=== PATIENT | female | born 1945 | race Caucasian/White ===

== ENCOUNTER 2020-11-11 20:03 | Emergency (ER) | payer MEDICARE, SELFPAY ==
[2020-11-11 20:04] VITALS: BP 150/97; PULSE 141; RESP 29; TEMP 36.6; O2SAT 97; BMI 28.2
--- NOTE | 2020-11-11 20:25 | EKG12_ITS ---
Test Reason : DYSRHYTHMIA Blood Pressure : / mmHG Vent. Rate : 139 BPM Atrial Rate : 159 BPM P-R Int : 184 ms QRS Dur : 074 ms QT Int : 264 ms P-R-T Axes : 000 -31 107 degrees QTc Int : 401 ms Sinus tachycardia with Premature atrial complexes Left axis deviation Nonspecific ST and T wave abnormality Abnormal ECG Confirmed by JORGE LUIS LITTLE, AILYN ([id number]), industrial editor CHERELLE ISABEL ([id number]) on 11/15/2020 10:03:12 AM Referred By: JABIER Confirmed By:AILYN KANG MD
--- NOTE | 2020-11-11 20:27 | ED.VIS.GI ---
HPI HPI - GI History of Present Illness Chief Complaint: GI Bleed Detail of Chief Complaint: Abdominal pain and vomiting blood Informant: patient Abdominal Pain/Flank Pain Onset: Today Nausea/Vomiting/Emesis GI Symptom: Positive for Nausea and Vomiting Quality: Positive for Hematemesis Narrative Narrative: Patient presents to the emergency department complaint of upper abdominal pain and 3 episodes of hematemesis. Patient states that she is passing some small clots. She continues to complain of nausea. Patient is on Eliquis. She does have a prior history of A. fib. She is never had similar episode. She denies any black tarry stool. Patient denies fever or recent illness. Prior similar symptoms: No PFSH PFS Medical History (Updated 11/11/20 @ 22:[address] Janel Ace, ) Atrial fibrillation Hypertension Home Medications apixaban [Eliquis] 5 mg PO DAILY 11/11/20 [History Last Taken Unknown] metoprolol tartrate 25 mg PO BID 11/11/20 [History Last Taken Unknown] Allergy/AdvReac Type Severity Reaction Status Date / Time metoclopramide [From Reglan] Allergy Other Verified 11/11/20 22:58 Social History Smoking Status: Never smoker ROS ROS ED Constitutional Constitutional ED: Reports systems reviewed and no addt'l complaints, except as documented; Denies body ache(s), change in weight or chills Eyes Eyes: Denies acute decrease in peripheral vision, change in vision, double vision or loss of vision ENT ENT ED: Reports none; Denies ear pain, lip swelling, loss taste/smell, neck pain, otalgia or sore throat Cardiovascular Cardiovascular: Reports none; Denies abdominal pain, chest pain with activity, leg edema, lightheadedness, palpitations, rapid heart rate or syncope Respiratory/Chest Respiratory/Chest: Reports none; Denies change in mental status, dry cough, dyspnea, hemoptysis, shortness of breath at rest or shortness of breath with exertion Gastrointestinal Gastrointestinal: Reports none, abdominal pain, nausea, vomiting and other Details: Hematemesis ; Denies change in stool character, diarrhea, hematemesis, hematochezia, melena or rectal bleeding Genitourinary Genitourinary ED: Reports none; Denies abdominal discomfort, anuria, dysuria, genital pain or polyuria Musculoskeletal Musculoskeletal: Reports none; Denies arthralgias, back pain, difficulty walking, extremity pain, muscle weakness or myalgias Integumentary Reports none; Denies abscess or rash Neurologic Neurologic: Reports none; Denies abnormal gait, confusion, focal weakness, frequent falls, headache(s), loss of vision, numbness, paresthesias, radicular pain, vertigo or weakness Psychiatric Psychiatric: Reports systems reviewed and no addt'l complaints, except as documented and none; Denies behavioral changes, confusion, difficulty concentrating, hallucinations, suicidal ideation, tactile hallucinations or visual hallucinations Endocrine Endocrinology: Denies none, cold intolerance, excessive sweating, fatigue or heat intolerance Hematologic/Lymphatic Hematologic/Lymphatic: Reports none; Denies anemia, easy bleeding or easy bruising Allergic/Immunologic Allergic/Immunologic ED: Denies as per HPI, none, lip swelling, mouth swelling, throat swelling, tongue swelling or hives EXAM Physical Exam Const Vital Signs: 11/11/20 20:04 Temperature 97.8 F Temperature Source Oral Pulse Rate 141 H Respiratory Rate 29 H Blood Pressure 150/97 H Blood Pressure Mean 114 Pulse Ox 97 Oxygen Delivery Method Room Air Positive well nourished and well developed General Appearance ED: well developed and NAD HEENT Reports TM's clear and moist mucous membranes normocephalic and atraumatic; Negative for trauma or tenderness Tympanic Membrane ED: Yes TM's clear Eyes PERRL and EOMs intact bilaterally General Eye ED: Negative for pale conjunctiva or scleral icterus Neck no lymphadenopathy, supple and no JVD General: Negative for tenderness Chest Wall inspection of chest normal and palpation of chest normal Chest: Negative for tenderness Resp normal respiratory effort and clear to auscultation bilaterally Effort and Inspection: Negative for respiratory distress or pain with movement Auscultation: Negative for rhonchi, wheezes or diminished lung sounds Cardio regular rate, regular rhythm, S1 normal heart sound, S2 normal heart sound and no murmurs Peripheral Pulses: pulses 2+ throughout GI normal to inspection, nondistended, normoactive bowel sounds, soft to palpation, non-tender, non-distended and no masses GI Narrative: Patient has some mild epigastric tenderness on palpation. There is no rebound, rigidity, or peritoneal signs. Palpation: tender Back/Spine no CVA tenderness and no thoracic nor lumbar tenderness Extremity normal to inspection General Extremety ED: Negative for edema General Extremity: Negative for edema Neuro oriented x3, CN's II-XII intact bilaterally, no sensory deficits noted and gait normal Sensorium / Orientation: awake, alert, oriented to person, oriented to place and oriented to time Motor Exam: strength 5/5 throughout and strength abnormal Psych mental status grossly normal Skin no rashes or lesions noted and no wounds MDM MDM MDM Narrative Medical decision making narrative: Patient with an upper GI bleed. She was given Zofran for nausea and she continued experience nausea therefore was given Reglan 10 mg IV. Patient started becoming agitated regarding the Reglan and was given Benadryl to counteract this as well as Cogentin 1 mg IV. Patient was also given a milligram of Ativan IV for agitation. Case was discussed with [facility] after discussion with our general surgeon on-call here and I was asked to transfer her to a tertiary care center where GI was available. Patient did receive Kcentra. Patient was accepted under care of who is the administrative assistant front desk at [facility]. Lab Data Attestation: I reviewed the patient's lab results. Labs: Laboratory Results - last 24 hr 11/11/20 11/11/20 11/11/20 20:22 20:22 20:22 WBC 10.3 RBC 3.23 L Hgb 10.0 L Hct 31.1 L MCV 96.3 MCH 31.0 MCHC 32.2 RDW Std Deviation 44.6 H RDW Coeff of Kiko 12.5 Plt Count 310 MPV 9.1 Immature Gran % (Auto) 0.400 Neut % (Auto) 82.6 H Lymph % (Auto) 12.5 L Titus % (Auto) 4.1 Eos % (Auto) 0.0 Baso % (Auto) 0.4 Absolute Neuts (auto) 8.5 H Absolute Lymphs (auto) 1.29 Nucleated RBC % 0 PT INR APTT Sodium 140 Potassium 4.1 Chloride 107 Carbon Dioxide 26.0 Anion Gap 7 BUN 61 H Creatinine 0.90 Estim Creat Clear Calc 37.60 Est GFR (MDRD) Af Amer 78 Est GFR (MDRD) Non-Af 64 BUN/Creatinine Ratio 67.6 H Glucose 156 H Lactic Acid Calcium 8.4 L Troponin I < 0.015 Blood Type A POSITIVE Antibody Screen NEGATIVE 11/11/20 11/11/20 11/11/20 20:22 20:34 22:55 WBC RBC Hgb 9.6 L Hct 30.6 L MCV MCH MCHC RDW Std Deviation RDW Coeff of Kiko Plt Count MPV Immature Gran % (Auto) Neut % (Auto) Lymph % (Auto) Titus % (Auto) Eos % (Auto) Baso % (Auto) Absolute Neuts (auto) Absolute Lymphs (auto) Nucleated RBC % PT 14.0 INR 1.1 APTT 28.3 Sodium Potassium Chloride Carbon Dioxide Anion Gap BUN Creatinine Estim Creat Clear Calc Est GFR (MDRD) Af Amer Est GFR (MDRD) Non-Af BUN/Creatinine Ratio Glucose Lactic Acid 1.6 Calcium Troponin I Blood Type Antibody Screen EKG Initial EKG: Attestation: I personally reviewed and interpreted this EKG as follows: Comments: Sinus tachycardia with a rate of 139 bpm Prior EKG tracings: not available for review Critical Care Time Critical Care Time: Yes Critical care time (excluding procedures): Including time spent:, Discussing w/Patient &/or Family/Computer Systems Security Analyst, Discussing w/Consultants, Arranging Admission or Transfer, Performing Direct Patient Care at Bedside and - Discharge Plan Triage Chief Complaint: GI Bleed ED Provider: Janel Ace Dx/Rx/DC Orders Clinical Impression: Acute upper gastrointestinal bleeding Prescriptions: No Action Eliquis 5 mg Tablet 5 mg PO DAILY RF: 0 metoprolol tartrate 25 mg Tablet 25 mg PO BID RF: 0 Primary Care Provider: Curt Garcia Referrals: Curt Garcia MD [Primary Care Provider] - Disposition Disposition: Transfer to another type HCF
[2020-11-11] MEDS: Ondansetron 4 MG/2 ML Vial IV (20:32)
[2020-11-11] MEDS: 0.9% Normal Saline 1,000 ML 125 ML IV (20:37)
[2020-11-11 20:47] LABS: Absolute Lymphocyte Count 1.29 X10^3/uL (0.83-4.51); Absolute Neutrophil Count 8.5 X10^3/uL (2.0-7.7); Basophil# 0.04 X10^3/uL; Basophil% 0.4 % (0-1); Hematocrit 31.1 % (37-47); Lymphocyte # 1.29 X10^3/ul (0.83-4.51); Lymphocyte % 12.5 % (19-41); Mean Corp Hgb Conc 32.2 g/dL (32-36); Mean Corpuscular Volume 96.3 fL (81-99); Mean Platelet Vol. 9.1 fl (6.2-12.0); Monocyte# 0.42 X10^3/uL; Monocyte% 4.1 % (0-10); NRBC Flagged by Analyzer 0 % (0-5); Neutrophil # 8.51 X10^3/uL (2.7-7.7); Neutrophil % 82.6 % (47-70); Platelet Count 310 K/mm3 (150-450); RBC Distribution Width CV 12.5 % (11.6-14.6); RBC Distribution Width SD 44.6 fl (35.1-43.9); Red Blood Count 3.23 M/mm3 (4.2-5.4); White Blood Count 10.3 K/mm3 (4.4-11.0)
[2020-11-11 21:00] LABS: Anion Gap 7 (5-15); BUN 61 mg/dL (7-18); BUN/Creat Ratio 67.6 RATIO (10-20); Calcium,Total 8.4 mg/dL (8.5-10.1); Chloride 107 mmol/L (98-107); EST Glomerular Filtration Rate 64 mL/min (>60); Est Glom Filt Rate - Afr Amer 78 mL/min (>60); Glucose 156 mg/dL (74-106); Potassium 4.1 mmol/L (3.5-5.1); Sodium Level 140 mmol/L (136-145)
[2020-11-11] MEDS: Metoclopramide 10 MG/2 ML Vial IV (21:04)
[2020-11-11 21:11] LABS: Lactic Acid 1.6 mmol/L (0.4-1.9)
[2020-11-11 21:14] LABS: International Normalized Ratio 1.1
[2020-11-11 21:15] LABS: Partial Thromboplast Time 28.3 Seconds (24.1-36.2)
[2020-11-11] MEDS: 0.9% Normal Saline 1,000 ML 999 ML IV (21:20)
[2020-11-11] MEDS: DiphenhydrAMINE 50 MG/ML Syringe 25 MG IV ×3 (21:20→23:48)
[2020-11-11 22:03] VITALS: BP 148/132; PULSE 140; RESP 16; O2SAT 95
--- NOTE | 2020-11-11 22:09 | ED.RN ---
DAUGHTER OF PT CAME INTO THE ER ENTRANCE STATING SHE WAS GOING BACK TO SEE HER MOTHER AND SHE DIDN'T CARE ABOUT THE RULES. EXPLAINED MULTIPLE TIMES THE RULES AND EXPLAINED THE TRANSFER PROCESS. DAUGHTER KEPT SAYING THE MANDATE IS DROPPED. EXPLAINED THAT IS NOT THE CASE IN THE HOSPITAL. NOTIFIED PT NURSE TO COME AND UPDATE DAUGHTER WITH MORE INFORMATION THAN SHE WAS GETTING FROM HER FATHER THAT WAS AT THE PTS BEDSIDE. SECURITY WAS ALSO PRESENT FOR THIS CONVERSATION
[2020-11-11] MEDS: LORazepam 2 MG/ML Syringe 1 MG IV (22:45)
[2020-11-11 23:00] VITALS: BP 121/103; PULSE 150; RESP 16; O2SAT 95
[2020-11-11 23:08] LABS: Hematocrit 30.6 % (37-47); Hemoglobin 9.6 g/dL (12.0-15.0)
[2020-11-12 00:19] VITALS: BP 121/103; PULSE 150; RESP 16; O2SAT 95
[2020-11-12] MEDS: Haloperidol Lactate 5 MG/ML Vial 2 MG IV (00:19)
== END 2020-11-12 00:35 | disposition other institution (70) ==
PROVIDERS: Emergency Provider Emergency Medicine; PCP Family Medicine
DX: K92.2 Gastrointestinal hemorrhage, unspecified (principal); I10 Essential (primary) hypertension; I48.91 Unspecified atrial fibrillation; Z79.01 Long term (current) use of anticoagulants; Z79.899 Other long term (current) drug therapy
CPT/HCPCS: 80048; 83605; 84484; 85014; 85018; 85025; 85610; 85730; 86850; 86900; 86901; 87426; 93005; 96365; 96366; 96367; 96375; 96376; 99285; C9132; J7030; A4216; J2405; J3490